=== PATIENT | female | born 1990 | race African-American/Black ===

== ENCOUNTER 2019-05-06 06:51 | Emergency (ER) | payer MEDICAID ==
[~2019-05-06] VITALS: Ht 165.1 cm; Wt 83.6 kg
[2019-05-06 08:25] LABS: Basophils # (auto) 0 uL; Basophils % (auto) 0.5 % (0.0-2.0); Eosinophils # (auto) 0.2 uL; Eosinophils % (auto) 3.2 % (0.0-7.0); Hematocrit 35.2 % (36.0-46.0); Hemoglobin 11.7 g/dL (12.2-16.2); Lymphocytes # (auto) 1.4 uL; Lymphocytes % (auto) 19.6 % (10.0-50.0); Mean Corpuscular Hemoglobin 29.9 pg (28.0-32.0); Mean Corpuscular Hgb Conc. 33.2 g/dL (32.0-36.0); Mean Corpuscular Volume 90.3 fL (80.0-100.0); Monocytes # (auto) 0.6 uL; Monocytes % (auto) 8.1 % (0.0-12.0); Neutrophils # (auto) 4.8 uL; Neutrophils % (auto) 68.6 % (37.0-80.0); Platelet Count (auto) 212 10^3/uL (140-450); Red Cell Distribution Width 13.2 % (11.8-14.3); White Blood Cell 6.9 10^3/uL (4.4-10.8)
[2019-05-06 08:42] LABS: Albumin 3.3 g/dL (3.4-5.0); BUN/Creatinine Ratio 8.3; Calcium 8.4 mg/dL (8.5-10.1); Potassium 3.6 mmol/L (3.5-5.1)
[2019-05-06 08:45] LABS: Bilirubin, Total 0.6 mg/dL (0.2-1.0); Total Protein 6.7 g/dL (6.4-8.2)
[2019-05-06 09:15] VITALS: BP 113/59
[2019-05-06 09:40] LABS: Urine Bacteria NONE SEEN /hpf (None Seen); Urine Blood 1+ /uL (Negative); Urine Specific Gravity 1.003 (1.001-1.035); Urine WBC <1 /hpf (0 - 5)
== END 2019-05-06 13:01 | disposition left against medical advice (07) ==
LOC: ER 06:51
DX: O20.8 Other hemorrhage in early pregnancy (principal); R19.09 Other intra-abdominal and pelvic swelling, mass and lump; Z3A.01 Less than 8 weeks gestation of pregnancy
CPT/HCPCS: 36415; 76801; 76817; 80053; 81001; 84702; 85025